=== PATIENT | male | born 1935 | race Caucasian/White ===

== ENCOUNTER 2016-03-18 01:09 | Inpatient (IN) | payer OTHER, MEDICARE ==
[~2016-03-18] VITALS: Ht 170.2 cm; Wt 87.6 kg
[~2016-03-18 01:09] MED LIST: ASPIR 8181 M1 PO; BRIMONIDINE TART5 ML BOTH EYES; CIPRO500 MG PO; COSOPT EYE DROPS5 ML BOTH EYES; DIOVAN80 MG PO; IBUPROFEN800 MG PO; LASIX40 MG PO; OMEPRAZOLE20 M2 PO; RANITIDINE HCL150 MG PO; SIMVASTATIN20 MG PO; ULTRAM50 MG PO
[2016-03-18 01:53] LABS: HEMATOCRIT 37.9 % (38.0-50.0); MCH 30.4 PG (29.0-34.0); MCHC 33.2 G/DL (30.0-36.0); MCV 91.5 FL (86-99); PLATELET COUNT 180 K/uL (156-360); RBC DIS.WIDTH-CV 14.5 % (11.8-14.6); RED BLOOD COUNT 4.14 M/uL (4.00-5.50); WHITE BLOOD COUNT 8.1 K/uL (4.1-10.2)
[2016-03-18 02:04] LABS: CHLORIDE 106 mEq/L (99-109); SODIUM 141 mEq/L (136-147)
[2016-03-18 02:05] LABS: GLUCOSE 123 mg/dL (70-99)
[2016-03-18 02:07] LABS: ANION GAP 11 MEQ/L (2-14)
[2016-03-18 02:09] LABS: GFR ESTIMATE (CALCULATED) > 59 mL/min/
[2016-03-18 02:10] LABS: UREA NITROGEN (BUN) 18 mg/dL (9-23)
[2016-03-18 02:42] LABS: INFLUENZA A VIRAL ANTIGEN POSITIVE; INFLUENZA B VIRAL ANTIGEN NEGATIVE
[2016-03-18 05:50] VITALS: BP 153/71
[2016-03-18 07:01] LABS: TROP-I INTERPRETATION NEGATIVE; TROPONIN-I < 0.01 ng/mL (0.0-0.30)
[2016-03-18 07:25] VITALS: BP 136/61
[2016-03-18 12:37] LABS: TROP-I INTERPRETATION NEGATIVE; TROPONIN-I < 0.01 ng/mL (0.0-0.30)
[2016-03-18 13:19] LABS: ADD MIUA? NO; BILIRUBIN NEGATIVE; BLOOD NEGATIVE; COLOR YELLOW ((YELLOW)); GLUCOSE (STRIP) NEGATIVE; KETONES NEGATIVE; LEUKOCYTES NEGATIVE; NITRITE NEGATIVE; PROTEIN (STRIP) NEGATIVE; SPECIFIC GRAVITY 1.008 (1.000-1.030); UCUL ADDED? NO; UROBILINOGEN 0.2 MG/DL (0.2-1.0)
[2016-03-18 16:15] VITALS: BP 124/67
[2016-03-18] MEDS ORDERED: OSTEO BI-FLEX1 EAC1 PO (18:13)
[2016-03-18] MEDS ORDERED: TURMERIC500 M1 PO (18:14)
[2016-03-18] MEDS ORDERED: FLONASE16 G1 BOTH NARES (18:14)
[2016-03-18] MEDS ORDERED: KRILL OIL500 MG PO (18:15)
[2016-03-18] MEDS ORDERED: CENTRUM SILVER1 EAC3 PO (18:15)
[2016-03-18] MEDS ORDERED: LATANOPROST2.5 ML BOTH EYES (18:16)
[2016-03-18] MEDS ORDERED: VITAMIN B-125000 MC1 PO (18:17)
[2016-03-18 19:32] LABS: TROP-I INTERPRETATION NEGATIVE; TROPONIN-I < 0.01 ng/mL (0.0-0.30)
[2016-03-19 00:07] VITALS: BP 132/61
[2016-03-19 06:35] LABS: EOSINOPHIL (%) 2.3 % (0-5); EOSINOPHIL COUNT 0.1 K/uL (0-0.3); IMMATURE GRANULOCYTE (%) 0.2 % (0.0-0.7); LYMPHOCYTE COUNT 1.4 K/uL (1.0-2.8); MCH 29.6 PG (29.0-34.0); MCHC 31.9 G/DL (30.0-36.0); MCV 92.7 FL (86-99); MEAN PLAT.VOLUME 9.2 uM^3 (9.0-12.4); MONOCYTE (%) 10.6 % (3-12); MONOCYTE COUNT 0.6 K/uL (0-0.8); NEUTROPHIL (%) 60.7 % (45-76); NEUTROPHIL COUNT 3.4 K/uL (1.8-6.4); PLATELET COUNT 143 K/uL (156-360); RBC DIS.WIDTH-SD 50.9 % (39-53); RED BLOOD COUNT 3.99 M/uL (4.00-5.50); WHITE BLOOD COUNT 5.6 K/uL (4.1-10.2)
[2016-03-19 06:54] LABS: ANION GAP 7 MEQ/L (2-14); CHLORIDE 102 MEQ/L (99-109); GFR ESTIMATE (CALCULATED) > 59 mL/min/; GLUCOSE 101 mg/dL (70-99); POTASSIUM 3.5 MEQ/L (3.7-5.4); SAMPLE HEMOLYSIS CHECK 0; SAMPLE ICTERIC CHECK 0; SAMPLE LIPEMIA CHECK 0; SODIUM 137 MEQ/L (136-147); UREA NITROGEN (BUN) 20 mg/dL (9-23)
[2016-03-19 07:33] VITALS: BP 165/72
[2016-03-19 09:29] LABS: INTERNAL CONTROL VALID? YES
[2016-03-19 15:24] VITALS: BP 107/59
[2016-03-19 23:02] VITALS: BP 136/66
[2016-03-20 08:30] VITALS: BP 156/75
[2016-03-20] MEDS ORDERED: OSELTAMIVIR PHO30 MG PO (12:36)
[2016-03-20] MEDS ORDERED: K-DUR10 MEQ PO (12:37)
== END 2016-03-20 14:07 | disposition home or self-care (01) | DRG 195 ==
LOC: EME 01:09 → EDOF 04:55 → 5EAST 04:55
PROVIDERS: Emergency Medicine; Hospitalist
DX: J10.1 Influenza due to other identified influenza virus with other respiratory manifestations (principal); J20.9 Acute bronchitis, unspecified; R09.02 Hypoxemia; I10 Essential (primary) hypertension; I25.10 Atherosclerotic heart disease of native coronary artery without angina pectoris; E78.5 Hyperlipidemia, unspecified; H40.9 Unspecified glaucoma; Z95.5 Presence of coronary angioplasty implant and graft; Z85.46 Personal history of malignant neoplasm of prostate; Z79.82 Long term (current) use of aspirin; Z88.5 Allergy status to narcotic agent
CPT/HCPCS: 71020; 80048; 81003; 84484; 85025; 85027; 87070; 87205; 87449; 87502; 93005; 94640; 94640 76; 94799; 99202; 99281; 99285; J0456; J0696; J1650; J2543; J3370; J7050; J7120

== ENCOUNTER 2016-06-02 19:33 | Emergency (ER) | payer OTHER, MEDICARE ==
[~2016-06-02] VITALS: Ht 170.2 cm; Wt 87.3 kg
[~2016-06-02 19:33] MED LIST changes: +CENTRUM SILVER1 EAC3 PO; +FLONASE16 G1 BOTH NARES; +K-DUR10 MEQ PO; +KRILL OIL500 MG PO; +LATANOPROST2.5 ML BOTH EYES; +OSELTAMIVIR PHO30 MG PO; +OSTEO BI-FLEX1 EAC1 PO; +TURMERIC500 M1 PO; +VITAMIN B-125000 MC1 PO
[2016-06-02 21:19] LABS: HEMATOCRIT 35.5 % (38.0-50.0); MCH 29.6 PG (29.0-34.0); MCHC 32.7 G/DL (30.0-36.0); MCV 90.6 FL (86-99); MEAN PLAT.VOLUME 8.9 uM^3 (9.0-12.4); PLATELET COUNT 267 K/uL (156-360); RBC DIS.WIDTH-CV 14.4 % (11.8-14.6); RBC DIS.WIDTH-SD 47.5 % (39-53); RED BLOOD COUNT 3.92 M/uL (4.00-5.50); WHITE BLOOD COUNT 14.4 K/uL (4.1-10.2)
[2016-06-02 21:25] LABS: CHLORIDE 105 mEq/L (99-109); POTASSIUM 3.8 mEq/L (3.7-5.4); SODIUM 137 mEq/L (136-147)
[2016-06-02 21:27] LABS: GLUCOSE 158 mg/dL (70-99)
[2016-06-02 21:29] LABS: ANION GAP 10 MEQ/L (2-14)
[2016-06-02 21:31] LABS: GFR ESTIMATE (CALCULATED) 52 mL/min/
[2016-06-02 21:32] LABS: UREA NITROGEN (BUN) 22 mg/dL (9-23)
[2016-06-02] MEDS ORDERED: ZOFRAN ODT4 MG PO (22:04)
[2016-06-02] MEDS ORDERED: NORCO 5/3251 TABLET PO (22:04)
[2016-06-02] MEDS ORDERED: KEFLEX500 MG PO (22:04)
[2016-06-02 22:15] VITALS: BP 124/58
== END 2016-06-02 22:19 | disposition home or self-care (01) ==
LOC: EME 19:33
PROVIDERS: Nurse Practitioner Family
DX: G89.18 Other acute postprocedural pain (principal); M79.641 Pain in right hand; R50.9 Fever, unspecified
CPT/HCPCS: 73130; 80048; 85027; 99281; 99284